=== PATIENT | male | born 1960 | race Caucasian/White ===

== ENCOUNTER 2020-03-23 01:13 | Outpatient (CLI) | payer OTHER, SELFPAY ==
[2020-03-23 18:31] LABS: SARS-CoV-2 RNA PCR Negative
== END 2020-03-23 01:14 | disposition home or self-care (01) ==
LOC: ANHCOVIDDT 01:14
PROVIDERS: PCP Internal Medicine; Visit Provider Internal Medicine Gastroenterology
DX: Z01.812 Encounter for preprocedural laboratory examination (principal); Z20.828 Contact with and (suspected) exposure to other viral communicable diseases
CPT/HCPCS: 87635; C9803; U0003

== ENCOUNTER 2020-03-26 00:54 | Day surgery (SDC) | payer OTHER, SELFPAY ==
[2020-03-14 14:33] VITALS: BMI 25.2
[2020-03-26 09:48] VITALS: BP 119/87; PULSE 63; RESP 18; TEMP 36.1; O2SAT 98
--- NOTE | 2020-03-26 09:58 | P.PNAN_ITS ---
Anes - Initial Pre Proc Eval Procedure: Operation Date: 03/26/20 11:00 Proposed Procedures p Screening Colonoscopy - Mohan Rowan MD Date/Time: 03/26/20 09:58 Surgeon: Mohan Rowan MD Pre Op Diagnosis: Neoplasm Screening Patient Data Age: 60 Gender: M Height: 5 ft 10 in Weight: 78.4 kg Last Vital Signs Temp 96.9 F L 03/26/20 09:48 Pulse 63 03/26/20 09:48 Resp 18 03/26/20 09:48 BP 119/87 03/26/20 09:48 Pulse Ox 98 03/26/20 09:48 Allergies Allergy/AdvReac Type Severity Reaction Status Date / Time No Known Allergies Allergy Verified 03/26/20 09:46 Home Medications Medication Instructions Recorded Confirmed Type lovastatin 20 mg tablet 20 mg PO DAILY #90 tablet 03/07/19 03/14/20 Rx lisinopril 10 mg tablet 10 mg PO DAILY #90 tablet 08/10/19 03/14/20 Rx tadalafil 20 mg tablet 20 mg PO DAILY PRN #6 tablet 08/23/19 03/14/20 Rx gemfibrozil 600 mg tablet 600 mg PO BID #180 tablet 11/21/19 03/14/20 Rx Patient hx anesthesia problems: none Family hx anesthesia problems: none PMFSH Past Medical History Medical History (Updated 03/26/20 @ 09:58 by Sanjay Xiong MD) Essential (primary) hypertension Mixed hyperlipidemia Family History Family History Sibling Family history of blood dyscrasia Family history of pulmonary embolism Father Malignant neoplasm of prostate, Onset Age: 69 Patient's father is , Onset Age: 69 Mother Patient's mother is , Onset Age: 78 Social History Social History Years smoked: 20 Smoking status: Never smoker Tobacco type: cigars Second hand tobacco smoke exposure: No Additional smoking assessment comments: rarely Alcohol intake: current Drinks per week: 6 Living arrangements: with family Gender identity (if verbalized by the patient): Male Spiritual care concerns: No Anes - Eval Final PreProcedure Day of Procedure 12/01/20 09:58 Patient weight: normal Heart: regular rate and rhythm Lungs: clear to auscultation Airway: Mallampati scale class II Neurological: alert and oriented Last oral intake: >/= 8 hours ASA classification: II Emergent: no Anesthetic plan: proceed Anesthesia type and monitoring: general GIVS and standard monitoring Informed Consent: The patient's anesthetic plan and its attendant risks and omid efits were discussed with the patient/family/POA. Questions were solicited and answers provided to the satisfaction of the patient/family/POA.
[2020-03-26] MEDS: LACTATED RINGERS 1,000 ML 150 ML IV CONT (10:04)
[2020-03-26 10:54] VITALS: BP 102/68; PULSE 63; RESP 18; O2SAT 96
[2020-03-26 11:03] VITALS: BP 110/73; PULSE 57; RESP 16; O2SAT 100
[2020-03-26 11:13] VITALS: BP 117/79; PULSE 54; RESP 16; O2SAT 100
--- NOTE | 2020-03-26 12:12 | PM.HPGS ---
History of Present Illness History of Present Illness Consent: Risks, benefits, and alternatives have been discussed and questions answered. Patient agrees to proceed with procedure. Chief complaint: Neoplasm Screening Narrative: Salinas De Leon is a 60 year old male with last colonoscopy 10 years ago, had fobt + Review of Systems Constitutional: Constitutional: Denies headache(s) and Denies weakness Eyes: Eyes: Denies blurry vision ENT: Reports Normal hearing present, Denies headache(s) and Denies neck pain Cardiovascular: Cardiovascular: Denies chest pain and Denies dyspnea Respiratory: Respiratory: Denies dyspnea Gastrointestinal: Gastrointestinal: Reports no additional gastrointestinal complaints Genitourinary: Genitourinary: Denies dysuria Musculoskeletal: Musculoskeletal: Denies neck pain Integumentary/Breasts: Skin/Breast: Denies dry skin Neurologic: Reports Normal hearing present, Denies headache(s) and Denies weakness Psychiatric: Psychiatric: Denies anxiety Endocrine: Endocrine: Denies change in body appearance Hematologic/Lymphatic: Hematologic/Lymphatic: Denies easy bleeding Allergic/Immunologic: Allergic/Immunologic: Denies urticaria PMFSH Past Medical History Medical History (Updated 03/26/20 @ 12:12 by Mohan Rowan MD) Colon cancer screening Essential (primary) hypertension Mixed hyperlipidemia Family History Family History Sibling Family history of blood dyscrasia Family history of pulmonary embolism Father Malignant neoplasm of prostate, Onset Age: 69 Patient's father is , Onset Age: 69 Mother Patient's mother is , Onset Age: 78 Social History Social History Years smoked: 20 Smoking status: Never smoker Tobacco type: cigars Second hand tobacco smoke exposure: No Additional smoking assessment comments: rarely Alcohol intake: current Drinks per week: 6 Living arrangements: with family Gender identity (if verbalized by the patient): Male Spiritual care concerns: No Meds Home Medications and Allergies Home Medications Medication Instructions Recorded Confirmed Type lovastatin 20 mg tablet 20 mg PO DAILY #90 tablet 03/07/19 03/14/20 Rx lisinopril 10 mg tablet 10 mg PO DAILY #90 tablet 08/10/19 03/14/20 Rx tadalafil 20 mg tablet 20 mg PO DAILY PRN #6 tablet 08/23/19 03/14/20 Rx gemfibrozil 600 mg tablet 600 mg PO BID #180 tablet 11/21/19 03/14/20 Rx Allergies Allergy/AdvReac Type Severity Reaction Status Date / Time No Known Allergies Allergy Verified 03/26/20 09:46 Vital Signs Vital Signs - 24 hr 03/26/20 09:48 03/26/20 10:54 03/26/20 11:03 Temperature 96.9 F L Pulse Rate 63 63 57 L Respiratory Rate 18 18 16 Blood Pressure 119/87 102/68 110/73 Pulse Oximetry 98 96 100 03/26/20 11:13 Temperature Pulse Rate 54 L Respiratory Rate 16 Blood Pressure 117/79 Pulse Oximetry 100 Exam Const: General: comfortable and no acute distress HENMT: General nose exam: Normal nares present Eyes: General: appearance normal, both eyes and all related structures Neck: Neck: no JVD Resp: Auscultation: clear to auscultation bilaterally Cardio: Rate: regular rate Rhythm: regular rhythm GI: Inspection: non-distended GI Palp: Yes Soft to palpation Skin: General skin exam: normal color Neuro: General: gait normal Speech: normal speech Extrem: General: normal to inspection Psych: Mental Status: mental status grossly normal Assessment and Plan Assessment and plan (1) Colon cancer screening: Code(s): Z12.11 - Encounter for screening for malignant neoplasm of colon Status: Acute Assessment and Plan: will proceed with colonoscopy
--- NOTE | 2020-03-26 13:22 | P.OP_ITS ---
Procedure Note - Detailed Date of procedure: 03/26/20 Pre-op diagnosis: Neoplasm Screening Surgeon: Mohan Rowan MD Pre-op diagnosis: Neoplasm Screening Surgeon: Mohan Rowan MD Procedure: colonoscopy indication: screening colonoscopy. Informed consent was obtained with the risks, benefits, and alternatives to sedation and procedure explained, including but not limited to: infection, bleeding, aspiration, perforation, adverse medication reaction, missed diagnosis, and missed lesions. The patient verbalized understanding and signed the informed consent form to proceed with the sedation and the procedure.First colonoscopy.No contraindications were noted on the physical exam. Immediately prior to sedation for endoscopy, the patient's ASA Classification was Class II: mild systemic disease. Patient re-examined and no interval changes noted from preoperative history and physical. After the patient was rolled into the procedure room, two methods of identification were used to identify the patient and the procedure to be performed prior to the procedure.Anesthesia was admi nistered by anesthesia service.The quality of the prep was excellent. Once the patient was comfortable a digital rectal exam was performed, and no masses were palpated. The patient was placed in the left lateral decubitus position.The instrument was inserted into the rectum and then advanced to the terminal ileum and cecum.A retroflexion was performed in the rectum. The withdrawal time from the cecum was 20 minutes. The patient tolerated the procedure well. The patient's heart rate was normal. The oxygen saturation and skin color were normal. The patient will be recovered per established procedures and protocols upon discharge from the endoscopy suite. Findings: 20 mm sessile polyp in distal ascending colon. I used 10 ml ORISE as submucosal injection with 9 ml of saline in order to lift polyp and obtain a nice submucosal cushion to avoid perforation or complications, then polyp was removed using hot snare as EMR in one piece, noted small defect in polypectomy site but used 5 hemoclips in order to close defect and approach edges. Then used SPOT distal and proximally from site. Also found internal hemorrhoids, medium size, non-bleeding with skin tags in anus. Recommendations: ok to resume diet and medications next colonoscopy in 2 years follow-up with pcp as needed previous blood in stool probablyl is perianal source.
== END 2020-03-26 11:45 | disposition home or self-care (01) ==
PROVIDERS: PCP Internal Medicine; Visit Provider Internal Medicine Gastroenterology
PROC: 0DJD8ZZ Inspection of Lower Intestinal Tract, Via Natural or Artificial Opening Endoscopic (ICD-10-PCS; CPT 45378; principal; 2020-03-26 11:00)
DX: Z12.11 Encounter for screening for malignant neoplasm of colon (principal); K63.5 Polyp of colon; K64.8 Other hemorrhoids; K64.4 Residual hemorrhoidal skin tags; I10 Essential (primary) hypertension; E78.2 Mixed hyperlipidemia
CPT/HCPCS: 45381; 45385; 87635; 88305; C9803; J2704; J7120; U0003

== ENCOUNTER 2021-04-21 11:24 | Outpatient (CLI) | payer OTHER, SELFPAY ==
[2021-04-21 13:20] LABS: SARS-CoV-2 RNA PCR Positive (Negative)
== END 2021-04-21 11:25 | disposition home or self-care (01) ==
LOC: CHSLAB 11:26
PROVIDERS: PCP Internal Medicine; Visit Provider Internal Medicine
DX: U07.1 COVID-19 (principal); R68.89 Other general symptoms and signs
CPT/HCPCS: C9803; U0003; U0005

== ENCOUNTER 2022-02-24 09:18 | Outpatient (CLI) | payer OTHER, SELFPAY ==
[2022-02-24 20:05] LABS: Alanine Aminotransferase 33 U/L (6-50); Albumin Level 4.8 g/dL (3.5-5.1); Alkaline Phosphatase 85 U/L (38-126); Anion Gap 10 mmol/L (8-16); Aspartate Amino Transferase 36 U/L (17-59); Bilirubin,Total 0.8 mg/dL (0.2-1.3); Blood Urea Nitrogen 22 mg/dL (9-20); Calcium 9.2 mg/dL (8.4-10.2); Carbon Dioxide 22 mmol/L (22-30); Chloride 105 mmol/L (98-107); Cholesterol 208 mg/dL (0-200); Estimated Glomerular Filt Rate > 60; Glucose 98 mg/dL (65-110); HDL Direct 44 mg/dL; Potassium 4.6 mmol/L (3.4-5.0); Sodium 137 mmol/L (137-145); Triglycerides 160 mg/dL (<150)
[2022-02-24 20:16] LABS: LDL Cholesterol Direct 112 mg/dL
[2022-02-24 20:35] LABS: Prostate Specific Antigen 1.7 ng/mL (< OR = 4.0)
== END 2022-02-24 09:19 | disposition home or self-care (01) ==
LOC: ANHGOSHLAB 09:20
PROVIDERS: PCP Family Medicine; Visit Provider Family Medicine
DX: E78.2 Mixed hyperlipidemia (principal); Z12.5 Encounter for screening for malignant neoplasm of prostate; I10 Essential (primary) hypertension
CPT/HCPCS: 36415; 80053; 80061; 84153; G0103

== ENCOUNTER 2023-01-27 01:20 | Day surgery (SDC) | payer OTHER, SELFPAY ==
[2023-01-19 11:54] VITALS: BMI 24.5
[2023-01-27 09:27] VITALS: BP 128/86; PULSE 64; RESP 16; TEMP 36; O2SAT 100; BMI 24.2
[2023-01-27] MEDS: LACTATED RINGERS 1,000 ML 150 ML IV CONT (09:37)
--- NOTE | 2023-01-27 10:31 | PM.HPGS ---
History of Present Illness History of Present Illness Consent: Risks, benefits, and alternatives have been discussed and questions answered. Patient agrees to proceed with procedure. Chief complaint: hx of colon polyps Narrative: Salinas De Leon is a 62 year old male with large colon polyp removed in 2019 Review of Systems Constitutional: Constitutional: Denies headache(s) and Denies weakness Eyes: Eyes: Denies blurry vision ENT: Reports Normal hearing present, Denies headache(s) and Denies neck pain Cardiovascular: Cardiovascular: Denies chest pain and Denies dyspnea Respiratory: Respiratory: Denies dyspnea Gastrointestinal: Gastrointestinal: Reports no additional gastrointestinal complaints Genitourinary: Genitourinary: Denies dysuria Musculoskeletal: Musculoskeletal: Denies neck pain Integumentary/Breasts: Skin/Breast: Denies dry skin Neurologic: Reports Normal hearing present, Denies headache(s) and Denies weakness Psychiatric: Psychiatric: Denies anxiety Endocrine: Endocrine: Denies change in body appearance Hematologic/Lymphatic: Hematologic/Lymphatic: Denies easy bleeding Allergic/Immunologic: Allergic/Immunologic: Denies urticaria PMFSH Past Medical History Medical History (Updated 01/27/23 @ 10:31 by Mohan Rowan MD) Adenomatous colon polyp Colon cancer screening Essential (primary) hypertension Mixed hyperlipidemia Family History Family History Sibling Family history of blood dyscrasia Family history of pulmonary embolism Father Malignant neoplasm of prostate, Onset Age: 69 Patient's father is , Onset Age: 69 Mother Patient's mother is , Onset Age: 78 Social History Social History Years smoked: 20 Smoking status: Current some day smoker Tobacco type: cigars Second hand tobacco smoke exposure: No Additional smoking assessment comments: rarely Alcohol intake: current Drinks per week: 8 Alcohol use details: mixed drinks Substance use: never Substance use type: does not use Lack of Transportation: No Lack of Food: Never True Current Housing: I Have Housing Concerned About Future Housing: No Difficulty Paying Gas/Electric Bills: No Difficulty Paying for Meds: No Currently Unemployed: No Education: Bachelor's Degree Difficulty w/ Childcare or Family Care: No Living arrangements: with family Gender identity (if verbalized by the patient): Male Spiritual care concerns: No Meds Home Medications and Allergies Home Medications Medication Instructions Recorded Confirmed Type tadalafil 20 mg tablet (Cialis) 20 mg PO DAILY PRN sexual activity 08/23/19 01/27/23 Rx #6 tabs lisinopril 10 mg tablet 10 mg PO DAILY #90 tabs 03/24/22 01/27/23 Rx gemfibrozil 600 mg tablet 600 mg PO DAILY 01/19/23 01/27/23 History lovastatin 20 mg tablet 20 mg PO DAILY 01/19/23 01/27/23 History Allergies Allergy/AdvReac Type Severity Reaction Status Date / Time No Known Allergies Allergy Verified 01/27/23 09:24 Vital Signs Vital Signs - 24 hr 01/27/23 09:27 Temperature 96.8 F L Pulse Rate 64 Respiratory Rate 16 Blood Pressure 128/86 Pulse Oximetry 100 Oxygen Delivery Room Air Exam Const: General: comfortable and no acute distress HENMT: Face/Nose/Sinus: Normal nares present Eyes: General: appearance normal, both eyes and all related structures Neck: Neck: no JVD Resp: Auscultation: clear to auscultation bilaterally Cardio: Rate: regular rate Rhythm: regular rhythm GI: Inspection: non-distended GI Palp: Yes Soft to palpation Skin: General skin exam: normal color Neuro: General: gait normal Speech: normal speech Extrem: General: normal to inspection Psych: Mental Status: mental status grossly normal Assessment and Plan Assessment and plan (1
[2023-01-27 10:50] VITALS: BP 110/72; PULSE 66; RESP 16; O2SAT 97
[2023-01-27 11:00] VITALS: BP 118/81; PULSE 65; RESP 18; O2SAT 98
[2023-01-27 11:10] VITALS: BP 131/91; PULSE 67; RESP 18; O2SAT 99
== END 2023-01-27 11:17 | disposition home or self-care (01) ==
PROVIDERS: PCP Family Medicine; Visit Provider Internal Medicine Gastroenterology
PROC: 0DJD8ZZ Inspection of Lower Intestinal Tract, Via Natural or Artificial Opening Endoscopic (ICD-10-PCS; CPT 45378; principal; 2023-01-27 10:30)
DX: Z12.11 Encounter for screening for malignant neoplasm of colon (principal); K63.5 Polyp of colon; K64.8 Other hemorrhoids; I10 Essential (primary) hypertension; E78.2 Mixed hyperlipidemia; F17.290 Nicotine dependence, other tobacco product, uncomplicated
CPT/HCPCS: 45380; 88305; J2704; J7120

== ENCOUNTER 2023-03-05 10:15 | Outpatient (CLI) | payer OTHER, SELFPAY ==
[2023-03-05 15:33] LABS: Alanine Aminotransferase 29 U/L (6-50); Albumin Level 4.7 g/dL (3.5-5.1); Alkaline Phosphatase 72 U/L (38-126); Anion Gap 11 mmol/L (8-16); Aspartate Amino Transferase 43 U/L (17-59); Blood Urea Nitrogen 26 mg/dL (9-20); Calcium 9.5 mg/dL (8.4-10.2); Carbon Dioxide 24 mmol/L (22-30); Chloride 104 mmol/L (98-107); Cholesterol 208 mg/dL (0-200); Estimated Glomerular Filt Rate > 60; Glucose 89 mg/dL (65-110); HDL Direct 44 mg/dL; Potassium 4.1 mmol/L (3.4-5.0); Sodium 139 mmol/L (137-145); Triglycerides 141 mg/dL (<150)
[2023-03-05 15:35] LABS: LDL Cholesterol Direct 111 mg/dL
[2023-03-05 15:49] LABS: Prostate Specific Antigen 4.1 ng/mL (< OR = 4.0)
== END 2023-03-05 10:16 | disposition home or self-care (01) ==
LOC: ANHGOSHLAB 10:16
PROVIDERS: PCP Family Medicine; Visit Provider Family Medicine
DX: Z12.5 Encounter for screening for malignant neoplasm of prostate (principal); Z13.228 Encounter for screening for other metabolic disorders; Z13.220 Encounter for screening for lipoid disorders
CPT/HCPCS: 36415; 80053; 80061; 84153; G0103

== ENCOUNTER 2024-03-10 08:57 | Outpatient (CLI) | payer MEDICARE, SELFPAY ==
[2024-03-10 12:21] LABS: Alanine Aminotransferase 26 U/L (6-50); Albumin Level 4.6 g/dL (3.5-5.1); Alkaline Phosphatase 82 U/L (38-126); Anion Gap 7 mmol/L (4-12); Aspartate Amino Transferase 62 U/L (17-59); Bilirubin,Total 0.9 mg/dL (0.2-1.3); Blood Urea Nitrogen 26 mg/dL (9-20); Calcium 9.4 mg/dL (8.4-10.2); Carbon Dioxide 27 mmol/L (22-30); Chloride 103 mmol/L (98-107); Cholesterol 213 mg/dL (0-200); Estimated Glomerular Filt Rate > 60; Glucose 83 mg/dL (65-110); HDL Direct 45 mg/dL; Potassium 4.7 mmol/L (3.4-5.0); Sodium 137 mmol/L (137-145); Triglycerides 196 mg/dL (<150)
[2024-03-10 12:34] LABS: LDL Cholesterol Direct 98 mg/dL; Prostate Specific Antigen 4.4 ng/mL (< OR = 4.0)
== END 2024-03-10 08:58 | disposition home or self-care (01) ==
PROVIDERS: PCP Family Medicine; Visit Provider Student in an Organized Health Care Education/Training Program
DX: E78.2 Mixed hyperlipidemia (principal); I10 Essential (primary) hypertension; Z12.5 Encounter for screening for malignant neoplasm of prostate
CPT/HCPCS: 36415; 80053; 80061; 84153; G0103

== ENCOUNTER 2025-03-12 08:31 | Outpatient (CLI) | payer MEDICARE, SELFPAY ==
[2025-03-12 13:20] LABS: Alanine Aminotransferase 34 U/L (6-50); Albumin Level 4.7 g/dL (3.5-5.1); Alkaline Phosphatase 77 U/L (38-126); Anion Gap 9 mmol/L (4-12); Aspartate Amino Transferase 65 U/L (17-59); Bilirubin,Total 1.2 mg/dL (0.2-1.3); Blood Urea Nitrogen 21 mg/dL (9-20); Calcium 9.2 mg/dL (8.4-10.2); Carbon Dioxide 23 mmol/L (22-30); Chloride 104 mmol/L (98-107); Cholesterol 75 mg/dL (0-200); Estimated Glomerular Filt Rate > 60; Glucose 77 mg/dL (65-110); HDL Direct 40 mg/dL; Potassium 4.3 mmol/L (3.4-5.0); Sodium 136 mmol/L (137-145); Total Protein 7.5 g/dL (6.3-8.2); Triglycerides 93 mg/dL (<150)
[2025-03-12 13:56] LABS: Prostate Specific Antigen 2.2 ng/mL (< OR = 4.0)
== END 2025-03-12 08:32 | disposition home or self-care (01) ==
PROVIDERS: PCP Student in an Organized Health Care Education/Training Program; Visit Provider Student in an Organized Health Care Education/Training Program
DX: E78.2 Mixed hyperlipidemia (principal); R97.20 Elevated prostate specific antigen [PSA]; Z12.5 Encounter for screening for malignant neoplasm of prostate; R74.01 Elevation of levels of liver transaminase levels
CPT/HCPCS: 36415; 80053; 80061; 84153; G0103